=== PATIENT | female | born 1985 | race African-American/Black ===

== ENCOUNTER 2022-10-12 17:08 | Emergency (ER) | payer MEDICAID ==
[~2022-10-12] VITALS: Ht 167.6 cm; Wt 80.0 kg
[2022-10-12 17:37] VITALS: BP 145/90
[2022-10-12] MEDS ORDERED: SULF1TAB48 MT (21:46)
[2022-10-12] MEDS ORDERED: TOPUD MT (21:46)
== END 2022-10-12 22:21 | disposition home or self-care (01) ==
LOC: ER 17:08
DX: R60.0 Localized edema (principal); E11.9 Type 2 diabetes mellitus without complications; Z59.00 Homelessness unspecified
CPT/HCPCS: 99281; 99283

== ENCOUNTER 2022-10-12 23:49 | Emergency (ER) | payer SELFPAY ==
[~2022-10-12] VITALS: Ht 167.6 cm; Wt 62.0 kg
[~2022-10-12 23:49] MED LIST: SULF1TAB48 MT; TOPUD MT
[2022-10-13 03:00] VITALS: BP 110/89
[2022-10-13] MEDS ORDERED: IBUPROFEN 600MG TABLET PO ONE (03:00)
[2022-10-13] MEDS ORDERED: CEFTRIAXONE SODIUM 1 G/VIAL IM ONE (03:00)
[2022-10-14] MEDS ORDERED: PRED10TA MT (05:20)
[2022-10-14] MEDS ORDERED: ALBU6.7H3 INH (05:20)
[2022-10-14] MEDS ORDERED: FURO-152 MT (05:20)
== END 2022-10-13 04:25 | disposition left against medical advice (07) ==
LOC: ER 10-13 00:07
DX: L03.115 Cellulitis of right lower limb (principal); R60.0 Localized edema; E11.9 Type 2 diabetes mellitus without complications
CPT/HCPCS: 99283; J0696

== ENCOUNTER 2022-10-13 18:52 | Emergency (ER) | payer SELFPAY ==
[~2022-10-13] VITALS: Ht 170.2 cm; Wt 61.0 kg
[2022-10-13 18:56] VITALS: BP 136/84
[2022-10-14] MEDS ORDERED: PRED10TA MT (05:20)
[2022-10-14] MEDS ORDERED: ALBU6.7H3 INH (05:20)
[2022-10-14] MEDS ORDERED: FURO-152 MT (05:20)
== END 2022-10-13 20:21 | disposition left against medical advice (07) ==
LOC: ER 18:52
DX: M79.669 Pain in unspecified lower leg (principal)
CPT/HCPCS: 99283

== ENCOUNTER 2022-10-14 03:51 | Emergency (ER) | payer SELFPAY ==
[~2022-10-14] VITALS: Ht 170.2 cm; Wt 86.0 kg
[2022-10-14 03:54] VITALS: BP 172/86
[2022-10-14] MEDS ORDERED: IPRATROPIUM BROMIDE (0.02%) 0.5MG/2.5ML NEB HHN STA (04:09)
[2022-10-14] MEDS ORDERED: ALBUTEROL (0.083%) 2.5MG/3ML NEB HHN STA (04:09)
[2022-10-14] MEDS ORDERED: FURO-152 MT (05:20)
[2022-10-14] MEDS ORDERED: PRED10TA MT (05:20)
[2022-10-14] MEDS ORDERED: ALBU6.7H3 INH (05:20)
== END 2022-10-14 06:58 | disposition home or self-care (01) ==
LOC: ER 04:06
DX: J45.909 Unspecified asthma, uncomplicated (principal); E87.70 Fluid overload, unspecified; E11.9 Type 2 diabetes mellitus without complications; I10 Essential (primary) hypertension; Z98.890 Other specified postprocedural states
CPT/HCPCS: 94640; 99283; Z7610

== ENCOUNTER 2022-10-14 08:43 | Emergency (ER) | payer SELFPAY ==
[~2022-10-14] VITALS: Ht 157.5 cm; Wt 59.0 kg
[~2022-10-14 08:43] MED LIST changes: +ALBU6.7H3 INH; +FURO-152 MT; +PRED10TA MT
[2022-10-14 08:58] VITALS: BP 142/11
== END 2022-10-14 12:46 | disposition home or self-care (01) ==
LOC: ER 08:43
DX: Z53.21 Procedure and treatment not carried out due to patient leaving prior to being seen by health care provider (principal)
CPT/HCPCS: 71045; 99281

== ENCOUNTER 2024-11-24 02:21 | Emergency (ER) | payer MEDICAID ==
[~2024-11-24] VITALS: Ht 162.6 cm; Wt 64.0 kg
[2024-11-24 02:27] VITALS: O2SAT 98
[2024-11-24 05:38] VITALS: BP 121/97; PULSE 99; RESP 16; TEMP 37.1; O2SAT 100
== END 2024-11-24 06:07 | disposition home or self-care (01) ==
LOC: ER 02:21
DX: F10.129 Alcohol abuse with intoxication, unspecified (principal); Z79.899 Other long term (current) drug therapy; Z00.00 Encounter for general adult medical examination without abnormal findings; Y90.9 Presence of alcohol in blood, level not specified
CPT/HCPCS: 99283